=== PATIENT | female | born 1985 | race Two or more races ===

== ENCOUNTER 2025-02-05 15:25 | Emergency (ER) | payer BC ==
[~2025-02-05] VITALS: Ht 160 cm; Wt 55.8 kg
[2025-02-05 16:01] LABS: BASOPHILS # (AUTO) 0.1 K/uL (0.0-0.2); BASOPHILS % (AUTO) 0.9 % (0.0-2.0); EOSINOPHILS # (AUTO) 0.3 K/uL (0.0-0.7); EOSINOPHILS % (AUTO) 2.1 % (0.0-6.0); HEMATOCRIT 39 % (33-45); HEMOGLOBIN 12.9 g/dL (11.5-14.8); LYMPHOCYTES # (AUTO) 2.9 K/uL (0.8-4.8); LYMPHOCYTES % (AUTO) 20.7 % (20.0-44.0); MEAN CORPUSCULAR HEMOGLOBIN 27 PG (26.0-33.0); MEAN CORPUSCULAR HGB CONC 33 g/dl (31.0-36.0); MEAN CORPUSCULAR VOLUME 82 fL (82-100); MONOCYTES # (AUTO) 1.3 K/uL (0.1-1.30); MONOCYTES % (AUTO) 9.3 % (2.0-12.0); NEUTROPHILS # (AUTO) 9.2 K/uL (1.8-8.9); PLATELET COUNT (AUTO) 288 K/uL (150-450); RED BLOOD CELL COUNT(AUTO) 4.74 MIL/uL (4.0-5.2); RED CELL DISTRIBUTION WIDTH 13.9 % (11.5-15.0); WHITE BLOOD COUNT (AUTO) 13.8 K/uL (4.3-11.0)
[2025-02-05 16:07] LABS: CARBON DIOXIDE 27 mmol/L (21-32); CHLORIDE 103 mmol/L (98-107); CREATININE 0.7 mg/dL (0.6-1.3); GLUCOSE 127 mg/dL (74-106); POTASSIUM 3.5 mmol/L (3.5-5.1); SODIUM SERUM 139 mmol/L (136-145); UREA NITROGEN, BLOOD 20 mg/dL (7-18)
[2025-02-05] MEDS ORDERED: MECLIZINE HCL 25 MG TABLET ONE (16:14)
[2025-02-05] MEDS ORDERED: ONDANSETRON HCL/PF 4 MG/2 ML VIAL ONE (16:14)
[2025-02-05 16:21] LABS: ALANINE AMINOTRANSFERASE 52 U/L (12-78); ALBUMIN 3.5 g/dL (3.4-5.0); ALKALINE PHOSPHATASE 64 U/L (46-116); ASPARTATE AMINOTRANSFERASE 34 U/L (15-37); BILIRUBIN,DIRECT 0.1 mg/dL (0.0-0.2); BILIRUBIN,TOTAL 0.2 mg/dL (0.2-1.0); NT-PRO BNP 21 pg/mL (0-125); TOTAL PROTEIN, SERUM 6.7 g/dL (6.4-8.2)
[2025-02-05] MEDS: MECLIZINE HCL 25 MG TABLET PO ONE (16:22)
[2025-02-05] MEDS: ONDANSETRON HCL/PF 4 MG/2 ML VIAL IVP ONE (16:22)
[2025-02-05] MEDS: IV NS 0.9% 1,000 ML BAG IV ONE (16:22)
[2025-02-05] MEDS ORDERED: MECL-159 PO (17:15)
[2025-02-05] MEDS ORDERED: METOCLOPRAMIDE HCL 10 MG/2 ML VIAL ONE (17:25)
[2025-02-05] MEDS ORDERED: LORAZEPAM INJ 2 MG/ML VIAL ONE (17:26)
[2025-02-05] MEDS: LORAZEPAM INJ 2 MG/ML VIAL IV ONE (17:40)
[2025-02-05] MEDS: METOCLOPRAMIDE HCL 10 MG/2 ML VIAL IV ONE (17:41)
[2025-02-05 18:41] VITALS: BP 110/70; TEMP 97.6; O2SAT 99
== END 2025-02-05 18:42 | disposition home or self-care (01) ==
LOC: ER 15:33
DX: R42 Dizziness and giddiness (principal); R11.10 Vomiting, unspecified; R53.1 Weakness; R10.2 Pelvic and perineal pain
CPT/HCPCS: 99285; 96374; 96375; 71045; 96361; 93005; 85025; 80048; 80076; 36415; 84484; 83880; 82962; 84702; J8597; J2060; J2765; J2405; J7030